=== PATIENT | female | born 1940 | race Two or more races ===

== ENCOUNTER 2021-03-14 17:22 | Inpatient (IN) | payer OTHER ==
[~2021-03-14] VITALS: Ht 152.4 cm; Wt 59.5 kg
[2021-03-14 22:17] LABS: Basophils # (auto) 0.1 10 ^3/uL (0-0.2); Basophils % (auto) 0.7 % (0.0-2.0); Eosinophils # (auto) 0 10 ^3/uL (0-0.8); Eosinophils % (auto) 0.2 % (0.0-7.0); Hematocrit 35.5 % (36.0-46.0); Hemoglobin 11.7 g/dL (12.2-16.2); Lymphocytes # (auto) 1.2 10 ^3/uL (0.4-5.4); Lymphocytes % (auto) 15.3 % (10.0-50.0); Monocytes # (auto) 0.9 10 ^3/uL (0-1.3); Monocytes % (auto) 11.9 % (0.0-12.0); Neutrophils # (auto) 5.6 10 ^3/uL (1.6-8.6); Neutrophils % (auto) 71.9 % (37.0-80.0); Nucleated Red Blood Cells % 0.2 %; Red Blood Cells 3.66 10^6/uL (4.0-5.20); Red Cell Distribution Width 14.9 % (11.8-14.3); White Blood Cell 7.7 10^3/uL (4.4-10.8)
[2021-03-14 22:33] LABS: Albumin 3.2 g/dL (3.4-5.0); Calcium 8.7 mg/dL (8.5-10.1); Potassium 4.3 mmol/L (3.5-5.1)
[2021-03-14 22:38] LABS: Bilirubin, Total 0.6 mg/dL (0.2-1.0); Total Protein 7.8 g/dL (6.4-8.2)
[2021-03-15] MEDS ORDERED: cefTRIAXone 1GM/50ML D5W 50 ML IV ONE (11:45)
[2021-03-15] MEDS ORDERED: IOHEXOL 300 MG/ML 100ML BOTTLE IJ ONE (12:19)
[2021-03-15] MEDS ORDERED: ONDANSETRON HCL 4 MG/2 ML VIAL IV ONE (12:45)
[2021-03-15] MEDS ORDERED: MORPHINE SULFATE 4 MG/ML SYR/VIAL IV ONE (12:45)
[2021-03-15] MEDS ORDERED: MORPHINE SULFATE INJECTION 2 MG/ML SYRG IV PRN (17:00)
[2021-03-15] MEDS ORDERED: VANCOMYCIN PER PHARMACY 0 MG IV SCH (17:00)
[2021-03-15] MEDS ORDERED: DEXTROSE (50%) 50ML SYRG IV PRN (17:00)
[2021-03-15] MEDS ORDERED: NITROGLYCERIN 0.4 MG SL TAB SL PRN (17:00)
[2021-03-15] MEDS ORDERED: PROMETHAZINE HCL 25 MG/ML 1ML IV PRN (17:00)
[2021-03-15] MEDS ORDERED: ACETAMINOPHEN 325 MG TAB PO PRN (17:00)
[2021-03-15] MEDS: InsuLIN REG 1unit/0.01ml Soln (100units/ml) SC SCH ×2 (17:37→22:18)
[2021-03-15] MEDS: ACCU-CHEK COMFORT CURVE STRIP VI SCH ×2 (17:37→22:15)
[2021-03-15] MEDS: VANCOMYCIN 1GM/250ML 250 ML IV SCH (19:26)
[2021-03-15 21:27] LABS: Cholesterol 106 mg/dL (< 200)
[2021-03-15 21:30] LABS: HDL Cholesterol 28 mg/dL (40-59); LDL Cholesterol 61 mg/dL (< 100); Triglycerides 112 mg/dL (< 150)
[2021-03-16 02:48] VITALS: BP 159/58
[2021-03-16 05:30] VITALS: BP 160/76
[2021-03-16] MEDS: MORPHINE SULFATE INJECTION 2 MG/ML SYRG IV PRN ×3 (05:37→22:01)
[2021-03-16] MEDS: ACCU-CHEK COMFORT CURVE STRIP VI SCH ×4 (05:53→21:47)
[2021-03-16] MEDS: cloNIDine HCL 0.1 MG TAB PO PRN (06:21)
[2021-03-16] MEDS: InsuLIN REG 1unit/0.01ml Soln (100units/ml) SC SCH ×4 (06:33→21:58)
[2021-03-16] MEDS: ENOXAPARIN SOD 40 MG/0.4 ML SYRINGE SC SCH (10:00)
[2021-03-16 10:04] VITALS: BP 150/64
[2021-03-16] MEDS: cefTRIAXone 1GM/50ML D5W 50 ML IV SCH (11:11)
[2021-03-16] MEDS: FAMOTIDINE 20 MG TAB PO SCH (11:12)
[2021-03-16 13:00] VITALS: BP 156/46
[2021-03-16 16:41] VITALS: BP 135/46
[2021-03-16 22:00] VITALS: BP 163/56
[2021-03-16 22:48] LABS: INR 1.05 (0.9-1.15); Partial Thromboplastin Time 26.5 sec (23.6-33.0)
[2021-03-16 22:54] LABS: BUN/Creatinine Ratio 14.3; Calcium 8.7 mg/dL (8.5-10.1); Potassium 4.2 mmol/L (3.5-5.1)
[2021-03-17] MEDS: cloNIDine HCL 0.1 MG TAB PO PRN (03:57)
[2021-03-17] MEDS: MORPHINE SULFATE INJECTION 2 MG/ML SYRG IV PRN ×2 (03:58→14:00)
[2021-03-17 05:30] VITALS: BP 159/51
[2021-03-17] MEDS: ACCU-CHEK COMFORT CURVE STRIP VI SCH ×3 (06:22→17:00)
[2021-03-17] MEDS: VANCOMYCIN 1GM/250ML 250 ML IV SCH (06:23)
[2021-03-17] MEDS: InsuLIN REG 1unit/0.01ml Soln (100units/ml) SC SCH ×3 (06:28→17:00)
[2021-03-17 08:45] VITALS: BP 159/51
[2021-03-17] MEDS: cefTRIAXone 1GM/50ML D5W 50 ML IV SCH (09:17)
[2021-03-17] MEDS: ENOXAPARIN SOD 40 MG/0.4 ML SYRINGE SC SCH (09:18)
[2021-03-17] MEDS: FAMOTIDINE 20 MG TAB PO SCH (09:18)
[2021-03-17 11:51] VITALS: BP 136/71
[2021-03-17 15:27] VITALS: BP 136/71
[2021-03-17 16:21] VITALS: BP 111/68
[2021-03-17 17:10] VITALS: BP 111/68
== END 2021-03-17 18:14 | disposition home health service (06) | DRG 600 ==
LOC: ER 17:22 → OVERFLOW 03-15 16:54 → WEST WING 03-16 02:13
PROVIDERS: ADMIT Hospitalist; ATTEND Hospitalist
DX: N61.1 Abscess of the breast and nipple (principal); N39.0 Urinary tract infection, site not specified; E44.1 Mild protein-calorie malnutrition; D63.8 Anemia in other chronic diseases classified elsewhere; E11.8 Type 2 diabetes mellitus with unspecified complications; M06.9 Rheumatoid arthritis, unspecified; Z20.822 Contact with and (suspected) exposure to COVID-19; Z68.25 Body mass index [BMI] 25.0-25.9, adult; Z92.3 Personal history of irradiation; Z82.49 Family history of ischemic heart disease and other diseases of the circulatory system; Z90.710 Acquired absence of both cervix and uterus; Z91.040 Latex allergy status
CPT/HCPCS: 36415; 71046; 71260; 80048; 80053; 80061; 82962; 83036; 83605; 85025; 85610; 85730; 87040; 87077; 87186; 87205; 87426; 96365; 96375; G0378; J0696; J1815; J2405

== ENCOUNTER 2022-08-31 16:22 | Inpatient (IN) | payer OTHER, MEDICAID ==
[~2022-08-31] VITALS: Ht 154.9 cm; Wt 59.1 kg
[2022-08-31 16:55] LABS: Eosinophils # (auto) 0 10 ^3/uL (0-0.8); Hemoglobin 10.2 g/dL (12.2-16.2)
[2022-08-31 16:56] LABS: Basophils # (auto) 0.1 10 ^3/uL (0-0.2); Basophils % (auto) 0.7 % (0.0-2.0); Hematocrit 31.5 % (36.0-46.0); Lymphocytes # (auto) 0.6 10 ^3/uL (0.4-5.4); Lymphocytes % (auto) 5.2 % (10.0-50.0); Mean Corpuscular Hemoglobin 29.4 pg (28.0-32.0); Mean Corpuscular Hgb Conc. 32.3 g/dL (32.0-36.0); Mean Corpuscular Volume 91.2 fL (80.0-100.0); Monocytes % (auto) 8.3 % (0.0-12.0); Neutrophils # (auto) 10.6 10 ^3/uL (1.6-8.6); Neutrophils % (auto) 85.8 % (37.0-80.0); Nucleated Red Blood Cells % 0.1 %; Red Blood Cells 3.46 10^6/uL (4.0-5.20); Red Cell Distribution Width 15.8 % (11.8-14.3); White Blood Cell 12.3 10^3/uL (4.4-10.8)
[2022-08-31 18:48] LABS: Urine Bacteria MANY /hpf (None Seen); Urine Blood 1+ /uL (Negative); Urine Hyaline Cast MANY /lpf (0 - 2); Urine Mucus FEW (None Seen); Urine WBC 581 /hpf (0 - 5); Urine WBC Clumps PRESENT /hpf (None Seen)
[2022-08-31] MEDS ORDERED: ONDANSETRON HCL 4 MG/2 ML VIAL IM ONE (22:30)
[2022-08-31 22:52] LABS: Albumin 2.4 g/dL (3.4-5.0); Calcium 8.7 mg/dL (8.5-10.1); Magnesium 2.1 mg/dL (1.6-2.6); Potassium 4.4 mmol/L (3.5-5.1)
[2022-08-31 22:55] LABS: BUN/Creatinine Ratio 24.8 (10.0-20.0); Bilirubin, Total 0.6 mg/dL (0.2-1.0)
[2022-09-01] MEDS ORDERED: LACTATED RINGER'S 1,000 ML IV ONE (02:15)
[2022-09-01] MEDS ORDERED: cefTRIAXone 1GM/50ML D5W 50 ML IV ONE (02:15)
[2022-09-01] MEDS ORDERED: MORPHINE SULFATE INJ 2 MG/ml SYRG IV PRN ×2 (06:15→07:00)
[2022-09-01] MEDS ORDERED: DOCUSATE SOD 100 MG CAP PO PRN (06:15)
[2022-09-01] MEDS ORDERED: ONDANSETRON HCL 4 MG/2 ML VIAL IV PRN (06:15)
[2022-09-01] MEDS ORDERED: DEXTROSE (50%) 50ML SYRG IV PRN (06:15)
[2022-09-01] MEDS ORDERED: ACETAMINOPHEN 325 MG TAB PO PRN (06:15)
[2022-09-01] MEDS: DOXYCYCLINE 100MG/250ML 250 ML IV SCH ×2 (06:44→20:35)
[2022-09-01] MEDS: ACCU-CHEK COMFORT CURVE STRIP VI SCH ×4 (07:00→23:56)
[2022-09-01] MEDS ORDERED: NITROGLYCERIN 0.4 MG SL TAB SL PRN (07:00)
[2022-09-01] MEDS: InsuLIN REG 1unit/0.01ml Soln (100units/ml) SC SCH ×3 (08:57→23:54)
[2022-09-01] MEDS: SODIUM CHLORIDE 0.9% 1,000 ML IV SCH ×2 (09:00→23:02)
[2022-09-01] MEDS: ASPirin 81 mg TAB PO SCH (10:00)
[2022-09-01 10:50] LABS: Basophils # (auto) 0 10 ^3/uL (0-0.2); Basophils % (auto) 0.3 % (0.0-2.0); Eosinophils # (auto) 0 10 ^3/uL (0-0.8); Eosinophils % (auto) 0.2 % (0.0-7.0); Hematocrit 28.6 % (36.0-46.0); Hemoglobin 9.2 g/dL (12.2-16.2); Lymphocytes # (auto) 0.8 10 ^3/uL (0.4-5.4); Lymphocytes % (auto) 6.1 % (10.0-50.0); Mean Corpuscular Hemoglobin 29.8 pg (28.0-32.0); Mean Corpuscular Hgb Conc. 32.2 g/dL (32.0-36.0); Mean Corpuscular Volume 92.4 fL (80.0-100.0); Monocytes # (auto) 1.2 10 ^3/uL (0-1.3); Monocytes % (auto) 9.3 % (0.0-12.0); Neutrophils # (auto) 10.9 10 ^3/uL (1.6-8.6); Neutrophils % (auto) 84.1 % (37.0-80.0); Nucleated Red Blood Cells % 0.2 %; Red Blood Cells 3.09 10^6/uL (4.0-5.20); Red Cell Distribution Width 15.8 % (11.8-14.3); White Blood Cell 12.9 10^3/uL (4.4-10.8)
[2022-09-01 11:15] LABS: Albumin 2.3 g/dL (3.4-5.0); Calcium 8.5 mg/dL (8.5-10.1); Potassium 4.1 mmol/L (3.5-5.1)
[2022-09-01 11:18] LABS: BUN/Creatinine Ratio 20.8 (10.0-20.0); Bilirubin, Total 0.5 mg/dL (0.2-1.0); Total Protein 7.5 g/dL (6.4-8.2)
[2022-09-01 23:00] VITALS: BP 128/68
[2022-09-01] MEDS: cefTRIAXone 1GM/50ML D5W 50 ML IV SCH (23:03)
[2022-09-01] MEDS: ATORVASTATIN 20 MG TAB PO SCH (23:15)
[2022-09-02 01:49] VITALS: BP 128/68
[2022-09-02 05:00] VITALS: BP 125/57
[2022-09-02] MEDS: HYDROcodone-ACET 5/325MG TAB PO PRN ×3 (05:19→23:24)
[2022-09-02] MEDS: DOXYCYCLINE 100MG/250ML 250 ML IV SCH ×2 (05:22→18:34)
[2022-09-02 06:01] LABS: Eosinophils # (auto) 0 10 ^3/uL (0-0.8); Eosinophils % (auto) 0.1 % (0.0-7.0); Hemoglobin 9.6 g/dL (12.2-16.2); Neutrophils # (auto) 8.1 10 ^3/uL (1.6-8.6); Red Cell Distribution Width 15.6 % (11.8-14.3)
[2022-09-02 06:03] LABS: Basophils # (auto) 0.1 10 ^3/uL (0-0.2); Basophils % (auto) 0.5 % (0.0-2.0); Lymphocytes % (auto) 9.4 % (10.0-50.0); Mean Corpuscular Hemoglobin 30.2 pg (28.0-32.0); Mean Corpuscular Hgb Conc. 33.1 g/dL (32.0-36.0); Mean Corpuscular Volume 91.2 fL (80.0-100.0); Monocytes # (auto) 1.8 10 ^3/uL (0-1.3); Red Blood Cells 3.18 10^6/uL (4.0-5.20)
[2022-09-02 06:14] LABS: Albumin 2.2 g/dL (3.4-5.0); Calcium 8.6 mg/dL (8.5-10.1)
[2022-09-02 06:18] LABS: BUN/Creatinine Ratio 20.6 (10.0-20.0); Bilirubin, Total 0.6 mg/dL (0.2-1.0)
[2022-09-02] MEDS: ACCU-CHEK COMFORT CURVE STRIP VI SCH ×4 (06:18→21:50)
[2022-09-02] MEDS: InsuLIN REG 1unit/0.01ml Soln (100units/ml) SC SCH ×5 (06:23→21:54)
[2022-09-02] MEDS ORDERED: KETO2CRE4 TOP (08:08)
[2022-09-02] MEDS ORDERED: BACL10TA PO (08:08)
[2022-09-02] MEDS ORDERED: ALEN70TA74 PO (08:08)
[2022-09-02] MEDS ORDERED: GLIP5TAB12 PO (08:08)
[2022-09-02] MEDS ORDERED: ROSU1TAB14 PO (08:08)
[2022-09-02] MEDS ORDERED: NITR100C6 PO (08:08)
[2022-09-02] MEDS ORDERED: CYA100I IM (08:08)
[2022-09-02] MEDS ORDERED: ALLO100T PO (08:08)
[2022-09-02] MEDS ORDERED: SITA100T23 PO (08:08)
[2022-09-02] MEDS ORDERED: ALBU108A5 INH (08:08)
[2022-09-02] MEDS ORDERED: MIRA50TA PO (08:08)
[2022-09-02] MEDS ORDERED: TAMO20TA9 PO (08:08)
[2022-09-02] MEDS ORDERED: FOLI-119 PO (08:08)
[2022-09-02] MEDS ORDERED: PROM6.2520 (08:08)
[2022-09-02] MEDS ORDERED: DEXL60CA7 PO (08:08)
[2022-09-02] MEDS ORDERED: HYDR-4798 PO (08:08)
[2022-09-02] MEDS ORDERED: METH2.5T PO (08:08)
[2022-09-02] MEDS ORDERED: LATA0.008 EACHEYE (08:08)
[2022-09-02] MEDS ORDERED: NYST150P2 (08:08)
[2022-09-02] MEDS ORDERED: LINA290C PO (08:08)
[2022-09-02] MEDS ORDERED: ASPI-325 PO (08:08)
[2022-09-02] MEDS ORDERED: MEGE20TA3 PO (08:08)
[2022-09-02 09:00] VITALS: BP 126/55
[2022-09-02] MEDS: ASPirin 81 mg TAB PO SCH (10:30)
[2022-09-02 13:00] VITALS: BP 122/45
[2022-09-02] MEDS: SODIUM CHLORIDE 0.9% 1,000 ML IV SCH (15:00)
[2022-09-02 17:00] VITALS: BP 111/49
[2022-09-02] MEDS: cefTRIAXone 1GM/50ML D5W 50 ML IV SCH (21:10)
[2022-09-02] MEDS: ATORVASTATIN 20 MG TAB PO SCH (21:10)
[2022-09-02 22:00] VITALS: BP 130/54
[2022-09-03 05:00] VITALS: BP 131/59
[2022-09-03] MEDS: DOXYCYCLINE 100MG/250ML 250 ML IV SCH (05:31)
[2022-09-03] MEDS: InsuLIN REG 1unit/0.01ml Soln (100units/ml) SC SCH ×2 (06:03→12:02)
[2022-09-03] MEDS: ACCU-CHEK COMFORT CURVE STRIP VI SCH ×2 (06:03→11:49)
[2022-09-03] MEDS: SODIUM CHLORIDE 0.9% 1,000 ML IV SCH (08:15)
[2022-09-03 09:35] LABS: Free T3 4.18 pg/mL (2.3-4.2); Free T4 (Free Thyroxine) 2.91 ng/dL (0.89-1.76)
[2022-09-03 09:44] VITALS: BP 135/61
[2022-09-03] MEDS: ASPirin 81 mg TAB PO SCH (09:45)
[2022-09-03] MEDS: HYDROcodone-ACET 5/325MG TAB PO PRN ×2 (10:03→16:58)
[2022-09-03 12:34] VITALS: BP 134/53
[2022-09-03] MEDS ORDERED: CEPH250C PO (15:38)
[2022-09-03 16:50] VITALS: BP 148/58
[2022-09-03 17:29] VITALS: BP 148/58
== END 2022-09-03 18:14 | disposition home or self-care (01) | DRG 313 ==
LOC: ER 16:22 → TELE 09-01 06:48 → TELE-EAST 09-01 20:32
PROVIDERS: ADMIT Nurse Practitioner Family; ATTEND Internal Medicine
DX: R07.9 Chest pain, unspecified (principal); N12 Tubulo-interstitial nephritis, not specified as acute or chronic; E44.1 Mild protein-calorie malnutrition; J98.11 Atelectasis; E11.65 Type 2 diabetes mellitus with hyperglycemia; D75.839 Thrombocytosis, unspecified; M19.90 Unspecified osteoarthritis, unspecified site; R26.81 Unsteadiness on feet; R53.1 Weakness; M06.9 Rheumatoid arthritis, unspecified; D72.829 Elevated white blood cell count, unspecified; R06.02 Shortness of breath; Z20.822 Contact with and (suspected) exposure to COVID-19; Z85.3 Personal history of malignant neoplasm of breast; Z91.040 Latex allergy status; Z68.20 Body mass index [BMI] 20.0-20.9, adult
CPT/HCPCS: 36415; 71250; 74176; 80053; 81001; 82010; 82962; 83605; 83690; 83735; 83880; 83930; 84439; 84443; 84481; 84484; 85025; 87086; 87088; 87186; 87426; 93005; 96365; 96372; 97110; 97116; 97163; 97530; G0378; J0696; J1815; J2405; J3490

== ENCOUNTER 2022-10-17 17:53 | Emergency (ER) | payer OTHER, MEDICAID ==
[~2022-10-17] VITALS: Ht 152.4 cm; Wt 55.0 kg
[~2022-10-17 17:53] MED LIST: ALBU108A5 INH; ALEN70TA74 PO; ALLO100T PO; ASPI-325 PO; BACL10TA PO; CEPH250C PO; CYA100I IM; DEXL60CA7 PO; FOLI-119 PO; GLIP5TAB12 PO; HYDR-4798 PO; KETO2CRE4 TOP; LATA0.008 EACHEYE; LINA290C PO; MEGE20TA3 PO; METH2.5T PO; MIRA50TA PO; NYST150P2; PROM6.2520; ROSU1TAB14 PO; SITA100T23 PO; TAMO20TA9 PO
[2022-10-17 18:35] VITALS: PULSE 109; RESP 15; O2SAT 95
[2022-10-17 19:30] VITALS: PULSE 110; RESP 21; TEMP 99; O2SAT 90
[2022-10-17] MEDS ORDERED: MORPHINE SULFATE 4 MG/ML SYR/VIAL IV ONE (20:45)
[2022-10-17 21:39] LABS: Basophils # (auto) 0 10 ^3/uL (0-0.2); Basophils % (auto) 0.2 % (0.0-2.0); Eosinophils # (auto) 0 10 ^3/uL (0-0.8); Eosinophils % (auto) 0.1 % (0.0-7.0); Hematocrit 28.4 % (36.0-46.0); Hemoglobin 9.2 g/dL (12.2-16.2); Lymphocytes # (auto) 0.9 10 ^3/uL (0.4-5.4); Lymphocytes % (auto) 12.7 % (10.0-50.0); Mean Corpuscular Hgb Conc. 32.5 g/dL (32.0-36.0); Mean Corpuscular Volume 89.2 fL (80.0-100.0); Monocytes # (auto) 0.6 10 ^3/uL (0-1.3); Monocytes % (auto) 8.2 % (0.0-12.0); Neutrophils # (auto) 5.5 10 ^3/uL (1.6-8.6); Neutrophils % (auto) 78.8 % (37.0-80.0); Nucleated Red Blood Cells % 0.2 %; Red Blood Cells 3.18 10^6/uL (4.0-5.20); Red Cell Distribution Width 17.7 % (11.8-14.3)
[2022-10-17 22:17] LABS: Alanine Aminotransferase 10 U/L (7-40); Albumin 3.6 g/dL (3.2-4.8); Alkaline Phosphatase 43 U/L (46-116); Anion Gap 8.2 (5-15); Aspartate Aminotransferase 23 U/L (13-40); BUN/Creatinine Ratio 15.9 (10.0-20.0); Bilirubin, Total 0.5 mg/dL (0.2-1.0); Blood Urea Nitrogen 10 mg/dL (9-23); Calcium 8.6 mg/dL (8.5-10.1); Carbon Dioxide 23.8 mmol/L (20-30); Chloride 106 mmol/L (98-107); Glucose 217 mg/dL (74-106); Sodium 138 mmol/L (136-145)
[2022-10-17 22:18] LABS: Total Protein 6.7 g/dL (5.7-8.2)
[2022-10-17] MEDS ORDERED: MORPHINE SULFATE INJ 2 MG/ml SYRG IV ONE (22:30)
[2022-10-17 23:35] VITALS: BP 146/65; PULSE 109; RESP 15; O2SAT 97
== END 2022-10-17 23:46 | disposition home or self-care (01) ==
LOC: EDUNIT# 17:53 → EDBD 17:53 → ER 17:53
DX: M25.512 Pain in left shoulder (principal); M25.511 Pain in right shoulder; M79.604 Pain in right leg; E11.9 Type 2 diabetes mellitus without complications; Z87.440 Personal history of urinary (tract) infections; Z91.040 Latex allergy status; W18.09XA Striking against other object with subsequent fall, initial encounter; Y93.89 Activity, other specified; Y92.89 Other specified places as the place of occurrence of the external cause; Y99.8 Other external cause status
CPT/HCPCS: 36415; 71045; 73030; 73502; 73552; 73590; 80053; 82962; 85025; 96374; 96376; 99285; J2270; 93005

== ENCOUNTER 2022-11-21 14:35 | Emergency (ER) | payer OTHER, MEDICAID ==
[~2022-11-21] VITALS: Ht 152.4 cm; Wt 46.3 kg
[2022-11-21 16:48] LABS: Basophils # (auto) 0.1 10 ^3/uL (0-0.2); Eosinophils # (auto) 0.1 10 ^3/uL (0-0.8)
[2022-11-21 16:50] LABS: Basophils % (auto) 1.6 % (0.0-2.0); Eosinophils % (auto) 1.2 % (0.0-7.0); Hematocrit 32.8 % (36.0-46.0); Hemoglobin 10.5 g/dL (12.2-16.2); Lymphocytes # (auto) 1.8 10 ^3/uL (0.4-5.4); Lymphocytes % (auto) 25.5 % (10.0-50.0); Mean Corpuscular Hgb Conc. 32.1 g/dL (32.0-36.0); Mean Corpuscular Volume 90.4 fL (80.0-100.0); Monocytes # (auto) 0.9 10 ^3/uL (0-1.3); Monocytes % (auto) 12.9 % (0.0-12.0); Neutrophils # (auto) 4.2 10 ^3/uL (1.6-8.6); Neutrophils % (auto) 58.8 % (37.0-80.0); Nucleated Red Blood Cells % 0.3 %; Red Blood Cells 3.63 10^6/uL (4.0-5.20); Red Cell Distribution Width 19.8 % (11.8-14.3); White Blood Cell 7.1 10^3/uL (4.4-10.8)
[2022-11-21 17:03] LABS: Alanine Aminotransferase 12 U/L (7-40); Albumin 3.6 g/dL (3.2-4.8); Alkaline Phosphatase 55 U/L (46-116); Anion Gap 7 (5-15); Aspartate Aminotransferase 20 U/L (13-40); BUN/Creatinine Ratio 12.8 (10.0-20.0); Bilirubin, Total 0.5 mg/dL (0.2-1.0); Blood Urea Nitrogen 10 mg/dL (9-23); Calcium 9.2 mg/dL (8.7-10.4); Carbon Dioxide 23 mmol/L (20-30); Chloride 110 mmol/L (98-107); Glucose 55 mg/dL (74-106); Potassium 4.4 mmol/L (3.5-5.1); Sodium 140 mmol/L (136-145); Total Protein 6.5 g/dL (5.7-8.2)
[2022-11-21 17:04] LABS: INR 1.16 (0.9-1.15); Prothrombin Time 12.1 sec (9.3-11.8)
[2022-11-21] MEDS ORDERED: CLIN300C70 PO (17:19)
[2022-11-21 17:41] VITALS: BP 131/54; PULSE 82; RESP 18; TEMP 97.8; O2SAT 100
[2022-11-21 18:32] LABS: Rapid Strep A Screen-Throat Negative
[2022-11-21 18:42] LABS: COVID19 ANTIGEN SOFIA FIA NEGATIVE (NEGATIVE); Rapid Influenza A Negative (Negative); Rapid Influenza B Negative (Negative); Respiratory Syncytial Virus Ag Negative
== END 2022-11-21 17:43 | disposition home or self-care (01) ==
LOC: ER 14:35
DX: K11.20 Sialoadenitis, unspecified (principal); E11.9 Type 2 diabetes mellitus without complications; M19.90 Unspecified osteoarthritis, unspecified site; Z20.822 Contact with and (suspected) exposure to COVID-19; Z91.040 Latex allergy status; Z79.899 Other long term (current) drug therapy
CPT/HCPCS: 36415; 70490; 71045; 80053; 85025; 85610; 86308; 87070; 87426; 87804; 87807; 87880

== ENCOUNTER → 2022-12-13 | Outpatient (CLI) | payer OTHER, MEDICAID ==
[~2022-12-13] MED LIST changes: +CLIN300C70 PO
== END | disposition home or self-care (01) ==
LOC: LAB 06:08
PROVIDERS: ATTEND Nurse Practitioner Family
DX: N39.0 Urinary tract infection, site not specified (principal)
CPT/HCPCS: 87086